=== PATIENT | female | born 1975 | race Caucasian/White ===

== ENCOUNTER 2019-04-24 13:01 | Emergency (ER) | payer SELFPAY ==
[~2019-04-24] VITALS: Ht 157.5 cm; Wt 95.5 kg
[2019-04-24] MEDS ORDERED: ACETAMINOPHEN 500 MG TABLET PO ONE (14:15)
[2019-04-24] MEDS ORDERED: IBUPROFEN 600 MG TABLET PO ONE (14:15)
[2019-04-24 14:53] VITALS: BP 147/87
== END 2019-04-24 15:52 | disposition home or self-care (01) ==
LOC: EMS 13:03
DX: S46.812A Strain of other muscles, fascia and tendons at shoulder and upper arm level, left arm, initial encounter (principal); S40.012A Contusion of left shoulder, initial encounter; Y04.0XXA Assault by unarmed brawl or fight, initial encounter; Y93.89 Activity, other specified; Y92.89 Other specified places as the place of occurrence of the external cause; Y99.8 Other external cause status